=== PATIENT | female | born 1965 | race Caucasian/White ===

== ENCOUNTER 2025-01-08 20:28 | Emergency (ER) | payer MEDICARE, OTHER, SELFPAY ==
[2025-01-08 20:27] VITALS: BP 102/88; PULSE 78; RESP 16; TEMP 36.4; O2SAT 99
[2025-01-08 20:38] VITALS: RESP 14
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
== END 2025-01-08 20:56 | disposition home or self-care (01) ==
PROVIDERS: Emergency Provider Emergency Medicine
DX: Z04.1 Encounter for examination and observation following transport accident (principal); C34.90 Malignant neoplasm of unspecified part of unspecified bronchus or lung; Z92.21 Personal history of antineoplastic chemotherapy; Z87.891 Personal history of nicotine dependence; V48.5XXA Car driver injured in noncollision transport accident in traffic accident, initial encounter
CPT/HCPCS: 99283